=== PATIENT | male | born 1935 | race Hispanic/Latino ===

== ENCOUNTER 2021-03-31 11:20 | Day surgery (SDC) | payer OTHER, MEDICARE ==
[2021-03-25 14:50] LABS: BASOPHILS % (AUTO) 0.8 % (0.0-5.0); EOSINOPHILS % (AUTO) 3.7 % (0.0-8.0); HEMATOCRIT 40.6 % (42-54); LYMPHOCYTES % (AUTO) 20.9 % (21.0-51.0); MEAN CORPUSCULAR HEMOGLOBIN 29.4 pg (27.0-33.0); MEAN CORPUSCULAR HGB CONC 32.3 g/dL (32.0-36.0); MEAN CORPUSCULAR VOLUME 91.2 fL (79-99); MONOCYTES % (AUTO) 5.8 % (3.0-13.0); NEUTROPHILS % (AUTO) 68.3 % (40.0-77.0); PLATELET COUNT (AUTO) 112 K/uL (130-400); RED BLOOD CELL COUNT(AUTO) 4.45 MIL/uL (4.50-6.20); RED CELL DISTRIBUTION WIDTH 13.9 % (11.0-15.5); WHITE BLOOD COUNT (AUTO) 8.3 K/uL (4.8-10.8)
[2021-03-25 14:58] LABS: APPEARANCE,URINE Clear (CLEAR); BILIRUBIN,URINE Negative (NEGATIVE); COLOR,URINE Orange (YELLOW); GLUCOSE, URINE (UA) Negative (NEGATIVE); KETONES,URINE Negative (NEGATIVE); LEUKOCYTE ESTERASE ,URINE Small (NEGATIVE); NITRATE,URINE Negative (NEGATIVE); OCCULT BLOOD,URINE Large (NEGATIVE); PROTEIN,URINE Trace mg/dL (NEGATIVE)
[2021-03-25 15:07] LABS: CREATININE 0.7 mg/dL (0.5-1.5); POTASSIUM 3.9 mmol/L (3.5-5.1)
[2021-03-25 15:09] LABS: INR 0.99 (0.85-1.15); PROTHROMBIN TIME 10.8 SEC (9.6-11.6)
[2021-03-25 15:09] LABS: BACTERIA,URINE Few /HPF (None Seen); SQUAMOUS EPITHELIAL CELL,UR Rare /HPF (0-2); WBC,URINE 0-1 /HPF (0-1)
[2021-03-25 15:10] LABS: RBC,URINE 26-50 /HPF (0-1)
[2021-03-25 15:11] LABS: PARTIAL THROMBOPLASTIN TIME 27.9 SEC (26.3-35.5)
[2021-03-30 15:06] VITALS: BP 113/57
[2021-03-31] VITALS (20 sets, daily range): BP systolic 106–141; BP diastolic 40–77
[~2021-03-31] VITALS: Ht 168.9 cm; Wt 64.1 kg
[2021-03-31] MEDS: CEFTRIAXONE 1G VIAL IVP SCH ×4 (06:00→15:00)
[~2021-03-31 11:20] MED LIST: ALEN70TA80 PO; ASPI-1197 PO; ATOR40TA71 PO; DONE10TA43 PO; FINA5TAB41 PO; LEVAQUIN PO; LISI-809 PO; TAMS-1 PO; [UNRECOGNIZED DRUG - OTHER] PO
[2021-03-31] MEDS ORDERED: 0.9%NACL 1000ML 1,000 ML IV ONE (11:54)
[2021-03-31] MEDS: GENTAMICIN 80 MG/NS 100 ML PB 100 ML IV SCH ×2 (13:25→14:40)
[2021-03-31] MEDS ORDERED: PROPOFOL 10 MG/ML 20ML VIAL IV ONE (14:26)
[2021-03-31] MEDS ORDERED: DEXAMETHASONE SOD PHOSPHATE 10MG/ML 1ML VIAL ONE (14:26)
[2021-03-31] MEDS ORDERED: ONDANSETRON 4MG INJ ONE (14:26)
[2021-03-31] MEDS ORDERED: LIDOCAINE PF 100MG/5ML (2%) SYRINGE 5ML ONE (14:26)
[2021-03-31] MEDS ORDERED: FENTANYL CITRATE PF 50 MCG/1 ML 2ML VIAL ONE ×3 (14:27→15:56)
[2021-03-31] MEDS ORDERED: MEPERIDINE-PF 25 MG/ML SYG ONE (15:06)
[2021-03-31] MEDS ORDERED: EPHEDRINE SULFATE 50 MG/ML AMPULE ONE (15:07)
== END 2021-03-31 18:35 | disposition home or self-care (01) ==
LOC: DAH 11:20
PROVIDERS: ATTEND Urology
DX: D29.1 Benign neoplasm of prostate (principal); Z20.822 Contact with and (suspected) exposure to COVID-19; N21.0 Calculus in bladder; N32.89 Other specified disorders of bladder; I10 Essential (primary) hypertension; M81.0 Age-related osteoporosis without current pathological fracture; G30.9 Alzheimer's disease, unspecified; F02.80 Dementia in other diseases classified elsewhere, unspecified severity, without behavioral disturbance, psychotic disturbance, mood disturbance, and anxiety; Z86.73 Personal history of transient ischemic attack (TIA), and cerebral infarction without residual deficits; Z79.01 Long term (current) use of anticoagulants; Z79.82 Long term (current) use of aspirin
CPT/HCPCS: 36415 ×2; 52317; 52648; 71045; 80048; 81001; 82360; 85025; 85610; 85730; 87088; 87426; 93005; A4215; A4221; A4222; A4223; A4354; A4358; A4600; A4663; A4930; A6260; J0696; J1100; J1580; J2001; J2175; J2405; J2704; J3010 ×3; J3490; J7030; J7120